=== PATIENT | female | born 1995 | race Caucasian/White ===

== ENCOUNTER 2020-09-06 05:25 | Emergency (ER) | payer OTHER, SELFPAY ==
--- NOTE | 2020-09-06 | ECG_ITS ---
Test Reason : ANXIETY
[2020-09-06 05:50] VITALS: BP 119/78; PULSE 109; PULSE 96; RESP 16; TEMP 37; O2SAT 99; BMI 40.2
--- NOTE | 2020-09-06 06:20 | ED_ITS ---
HPI - Anxiety General Chief Complaint: Anxiety Stated Complaint: anxiety Time Seen by Provider: 09/06/20 06:02 Source: patient Mode of arrival: EMS Limitations: no limitations History of Present Illness HPI narrative: 25-year-old female who presents emergency department for evaluation of chest pain, shortness of breath, heart palpitations. Patient states she has been experiencing these symptoms over the past 2 days. She states that the symptoms are worse at night. She states that prior to coming to the emergency department she developed a racing sensation in her heart and at skipping beat sensation. She developed pain in the center of her chest which she describes as a pressure-like pain which has been intermittent. She also states she had increased heartburn. She states that she felt very anxious and panicked. She states she does have a history of anxiety but there has been no increased stressors that she can identify. She denied fever, chills, cough, nausea, vomiting, myalgias, arthralgias, diarrhea. Related Data Allergies Allergy/AdvReac Type Severity Reaction Status Date / Time amphetamine [From ADDERALL] AdvReac Unknown HYPER/ANGRY Unverified 09/06/20 05:59 dextroamphetamine AdvReac Unknown HYPER/ANGRY Unverified 09/06/20 05:59 [From ADDERALL] Review of Systems Review of Systems: Yes all other systems are reviewed and are negative [facility] Past Medical History [facility] Narrative: Patient has a history of asthma, depression, anxiety, PTSD. She smokes half a pack of cigarettes per day x7 years, she drinks alcohol occasionally she states she last drank yesterday. She smokes marijuana multiple times a day. Physical Exam Vital Signs: Vital Signs: Last Vital Signs Temp 98.6 F 09/06/20 05:50 Pulse 96 09/06/20 05:50 Resp 16 09/06/20 05:50 BP 119/78 09/06/20 05:50 Pulse Ox 99 09/06/20 05:50 Body Mass Index 40.2 Const: General: cooperative and anxious Nutritional Appearance: overweight Orientation/consciousness: oriented to person and oriented to place Limitations: no limitations HENMT: Head: Yes normal to inspection, Yes normocephalic and Yes atraumatic Ears: external ears normal General nose exam: Normal external nose present Face and sinus: Yes normal facial exam Mouth: Normal oral and palatal mucosa present Throat: Yes posterior oropharynx normal Eyes: Periorbital: periorbital findings normal Eyelids: Yes eyelids normal Conjunctivae: conjunctivae normal Sclerae: sclerae normal Corneas: corneas normal Pupils: Equal, round and reactive pupils present Direct Ophthalmoscopy: normal light reflex Neck: Neck: Yes full ROM, Yes no lymphadenopathy, Yes no meningeal signs, Yes trachea midline and Yes supple Chest: Chest palpation & inspection: normal inspection of the chest and normal palpation of entire chest wall Resp: Effort & Inspection: normal respiratory effort and able to speak in complete sentences Auscultation: clear to auscultation bilaterally Cardio: Rate: tachycardic Rhythm: regular rhythm Heart sounds: S1 normal heart sound present, S2 normal heart sound present and no murmurs GI: Inspection: Yes normal to inspection Palpation (GI): Soft to palpation, nontender, no guarding, not rigid and No hepatosplenomegaly present : General: Yes no CVA tenderness Back/Spine/Pelvis: Back: no CVA tenderness Cervical Spine: normal cervical lordosis Thoracic/Lumbar Spine: thoracic and lumbar spine normal to inspection Skin: Lesions: no lesions Rashes: no rashes Wounds: no wounds Neuro: General: oriented to person, oriented to place and no meningeal signs Cranial nerves: Yes CN's II-XII intact bilaterally and Yes Equal, round and reactive pupils present Cognition (Neuro): normal cognition Motor exam (neuro): 5/5 motor strength present throughout Extrem: General: Yes normal to inspection and Yes full ROM Psych: Appearance: well kempt Mental Status: mental status grossly normal Speech and movement: Normal speech and movement present Affect: normal affect Attitude: cooperative Thought process: Normal thought process present Thought content: Normal thought content present Course Course Course Narrative: 24-year-old female who presents emergency department for evaluation of chest pain, palpitations and anxiety. Vital signs were stable wit h a pulse of 96 and an O2 saturation of 99% on room air. Physical examination revealed that she was anxious, and tachycardic otherwise exam was unremarkable. I ordered a CBC, CMP, urinalysis, urine test and TSH on this patient. EKG was also obtained. Patient's EKG revealed sinus rhythm with a rate of 98, prolonged QRS of 102 milliseconds otherwise was unremarkable. Patient was order ed to get Ativan 1 mg IV. MDM - Anxiety ECG Data Attestation: I personally reviewed and interpreted this ECG as follows: Interpretation: 0601: Normal sinus rhythm with a rate of 93, normal MN interval, prolonged QRS of 102 milliseconds, normal QTC, inverted T-wave in lead 3, no ST segment elevation, no ST segment depression, no old EKG for comparison
[2020-09-06] MEDS: LORazepam 2 MG/ML VIAL 1 MG IVPUSH (07:09)
[2020-09-06 07:10] LABS: MANUAL DIFF FLAG NO
[2020-09-06 07:11] LABS: Basophils Percent Auto 0.3 % (0-2); Eosinophils Percent Auto 0.3 % (0-4); Hematocrit 40.4 % (37-47); Hemoglobin 13.7 g/dl (12.0-16.0); Imm Gran Abs Auto 0.04 X10*3/uL (0.00-0.03); Imm Gran Pct Auto 0.5 % (0.0-0.4); Lymphocytes Absolute Auto 1.7 X10*3/uL (1.2-4.9); Lymphocytes Percent Auto 19.6 % (20-40); Mean Corpuscular HGB Conc 33.9 g/dl (31.0-35.0); Mean Corpuscular Hemoglobin 28.7 pg (27.0-33.0); Mean Corpuscular Volume 84.7 fL (80-98); Monocytes Absolute Auto 0.8 X10*3/uL (0.1-1.2); Monocytes Percent Auto 8.8 % (2-11); Neutrophils Absolute Auto 6.2 X10*3/uL (2.0-8.3); Neutrophils Percent Auto 70.5 % (45-73); Platelet Count 252 X10*3/uL (160-400); Red Blood Count 4.77 X10*6/uL (4.20-5.50); Red Cell Distribution Width 12.3 % (11.0-16.0); White Blood Count 8.7 X10*3/uL (4.8-10.8)
[2020-09-06 07:34] LABS: Alanine Aminotransferase 28 U/L (0-31); Albumin Level 4.3 g/dL (3.5-5.0); Alkaline Phosphatase 71 U/L (39-117); Anion Gap 12 (12-20); Aspartate Amino Transferase 26 U/L (5-31); Bilirubin Total 0.2 mg/dL (0.0-1.0); Blood Urea Nitrogen 19 mg/dL (9-16); Calcium 9.8 mg/dL (8.4-10.2); Carbon Dioxide 24 mmol/L (22-29); Chloride 106 mmol/L (96-108); Creatinine Clr Calc Pharmacy 117.8; Estimated Glomerular Filt Rate > 60; Glucose Random 107 mg/dL (60-115); Potassium 4.3 mmol/L (3.3-5.1); Sodium 138 mmol/L (135-145); Total Protein 7.5 g/dL (6.5-8.0)
[2020-09-06 07:38] LABS: Troponin-I High Sensitivity < 3.5 ng/L (<3.5-17.0)
[2020-09-06 07:52] LABS: TSH reflex Free T4 1.32 uIU/mL (0.32-4.0)
[2020-09-06 08:51] VITALS: BP 117/54; PULSE 76; RESP 18; O2SAT 97
== END 2020-09-06 10:04 | disposition home or self-care (01) ==
PROVIDERS: Emergency Provider Emergency Medicine Emergency Medical Services
DX: F41.9 Anxiety disorder, unspecified (principal); R00.2 Palpitations
CPT/HCPCS: 36415; 80053; 84443; 84484; 85025; 93005; 96374; 99284; J2060

== ENCOUNTER 2020-09-08 21:55 | Emergency (ER) | payer OTHER, SELFPAY ==
[2020-09-08 22:55] VITALS: BP 117/53; PULSE 100; RESP 24; TEMP 36.5; O2SAT 97; BMI 40.7
--- NOTE | 2020-09-08 23:02 | ECG_ITS ---
Test Reason : PALPITATIONS Blood Pressure : / mmHG Vent. Rate : 075 BPM Atrial Rate : 075 BPM P-R Int : 180 ms QRS Dur : 104 ms QT Int : 404 ms P-R-T Axes : 056 049 004 degrees QTc Int : 451 ms Normal sinus rhythm Normal ECG When compared with ECG of 06-SEP-2020 06:01, No significant changes seen Referred By: Generic ED Physician Electronically Signed By:GISELA BURNS
[2020-09-08 23:16] LABS: MANUAL DIFF FLAG NO
[2020-09-08 23:17] LABS: Basophils Percent Auto 0.3 % (0-2); Eosinophils Percent Auto 0.2 % (0-4); Hematocrit 40.4 % (37-47); Hemoglobin 14.2 g/dl (12.0-16.0); Imm Gran Abs Auto 0.02 X10*3/uL (0.00-0.03); Imm Gran Pct Auto 0.2 % (0.0-0.4); Lymphocytes Absolute Auto 2.6 X10*3/uL (1.2-4.9); Lymphocytes Percent Auto 28.7 % (20-40); Mean Corpuscular HGB Conc 35.1 g/dl (31.0-35.0); Mean Corpuscular Hemoglobin 29.1 pg (27.0-33.0); Mean Corpuscular Volume 82.8 fL (80-98); Mean Platelet Volume 9.1 fL (9.4-12.3); Monocytes Absolute Auto 0.7 X10*3/uL (0.1-1.2); Monocytes Percent Auto 8.1 % (2-11); Neutrophils Absolute Auto 5.7 X10*3/uL (2.0-8.3); Neutrophils Percent Auto 62.5 % (45-73); Platelet Count 253 X10*3/uL (160-400); Red Blood Count 4.88 X10*6/uL (4.20-5.50); Red Cell Distribution Width 12.3 % (11.0-16.0); White Blood Count 9.1 X10*3/uL (4.8-10.8)
[2020-09-08 23:40] LABS: Anion Gap 15 (12-20); Blood Urea Nitrogen 10 mg/dL (9-16); Calcium 9.7 mg/dL (8.4-10.2); Carbon Dioxide 22 mmol/L (22-29); Chloride 107 mmol/L (96-108); Creatinine Clr Calc Pharmacy 113.5; Estimated Glomerular Filt Rate > 60; Glucose Random 88 mg/dL (60-115); Potassium 3.6 mmol/L (3.3-5.1); Sodium 140 mmol/L (135-145)
[2020-09-08 23:47] LABS: Troponin-I High Sensitivity < 3.5 ng/L (<3.5-17.0)
--- NOTE | 2020-09-09 00:33 | ED.GENADULT ---
HPI - General Adult General Chief complaint: General Medical Stated complaint: ANXIETY - PALPITATIONS Time Seen by Provider: 09/09/20 00:18 Source: patient Mode of arrival: ambulatory Limitations: no limitations History of Present Illness HPI narrative: Patient comes emergency room complaining anxiety. Patient has been seen here yesterday and was also seen at [facility]. Prior to come to the emergency room, patient talk to [employer], they are working with her insurance to set up an appointment with a new PCP and a psychologist for therapy. Patient states that she feels palpitations, and becomes more anxious. At this time, patient overall feeling better. Yesterday, a TSH and troponin were checked , within normal limits. Patient denies suicidal or homicidal ideation. Patient denies chest pain, no shortness of breath at this time. Related Data Previous Rx's Medication Instructions Recorded diphenhydramine HCl [Benadryl] 25 mg PO TID PRN #20 cap 09/06/20 hydroxyzine HCl 50 mg PO BID PRN #14 tab 09/09/20 ondansetron HCl [Zofran] 4 mg PO Q6H PRN #14 tab 09/09/20 simethicone [Gas Relief 180 mg PO BID PRN #14 cap 09/09/20 (simethicone)] Allergies Allergy/AdvReac Type Severity Reaction Status Date / Time amphetamine [From ADDERALL] AdvReac Unknown HYPER/ANGRY Verified 09/08/20 22:55 dextroamphetamine AdvReac Unknown HYPER/ANGRY Verified 09/08/20 22:55 [From ADDERALL] Review of Systems Review of Systems: Constitutional : No Weight loss, No Fever, No Chills, No Night Sweats, No Fatigue, No Malaise ENT/Mouth : No Hearing loss, No Ear Pain, No Nasal Congestion, No Sinus Pain, No Hoarseness, No sore throat, No Rhinorrhea, No Swallowing Difficulty Eyes: No Eye Pain, No Swelling, No Redness, No Foreign Body, No Discharge, No Vision Changes Cardiovascular : No Chest Pain, No SOB, No Dyspnea on Exertion, No Orthopnea, No Edema, complaining of intermittent palpitations Respiratory : No Cough, No Sputum, No Wheezing, No Smoke Exposure, No Dyspnea Gastrointestinal : No Nausea, No Vomiting, No Diarrhea, No Constipation, No abdominal Pain, No Hematochezia, No Melena Genitourinary : no irregular bleeding, No Dysuria, No Urinary Frequency, No Hematuria, No Urinary Incontinence, No Urgency, No Flank Pain, No Urinary Flow Changes, No Hesitancy Musculoskeletal : No joint pain, No Myalgias, No Joint Swelling Skin : No Skin Lesions, No rash Neuro : No Weakness, No Numbness, No Paresthesias, No Loss of Consciousness, No Dizziness, No Headache Psych : Complaining of anxiety, depression, No SI/HI/AH/VH, No Social Issues, Heme/Lymph: No Bruising, No Bleeding,No Lymphadenopathy Endocrine : No Polyuria, No Polydipsia, No Temperature Intolerance [facility] Social History Social History Advance Directives: No Advance Directives Information Provided: No Physical Exam Vital Signs: Vital Signs: Last Vital Signs Temp 97.7 F 09/08/20 22:55 Pulse 100 09/08/20 22:55 Resp 24 H 09/08/20 22:55 BP 117/53 L 09/08/20 22:55 Pulse Ox 97 09/08/20 22:55 Body Mass Index 40.7 Appearance: Alert. Oriented X3. No acute distress. Anxious Eyes: Pupils equal, round and reactive to light. ENT: Pharynx normal. Neck: Normal inspection. Neck supple. No lymph nodes noted. No crepitus CVS: Normal heart rate and rhythm. Pulses normal. Normal S1 and S2 Respiratory: No respiratory distress. Breath sounds normal. No Wheezing. No rales Abdomen: Soft and nontender. No rigidity. No distention. good BS x4 Skin: Skin warm and dry. Normal skin color. Normal skin turgor. Extremities: No lower extremity edema. No lower extremity edema. No Lacerations. No Rash Neuro: Oriented X 3. No motor deficit. No sensory deficit. Moving all extermities. No slurred speech. Course Course Course Narrative: Patient is already being seen by [facility], troponin today was normal, he states yesterday within normal limits. Patient requesting hydroxyzine, states it has helped her in the past. Patient also requesting medication for abdominal bloating and nausea which become intense during panic attacks. Patient states that she also ran out of her albuterol medication, requesting a pump Medical Decision Making Lab Data Result diagrams: 09/08/20 23:10 09/08/20 23:10 Labs: Lab Results 09/08/20 09/08/20 09/08/20 Range/Units 23:10 23:10 23:10 WBC 9.1 (4.8-10.8) X10*3/uL RBC 4.88 (4.20-5.50) X10*6/uL Hgb 14.2 (12.0-16.0) g/dl Hct 40.4 (37-47) % MCV 82.8 (80-98) fL MCH 29.1 (27.0-33.0) pg MCHC 35.1 H (31.0-35.0) g/dl RDW 12.3 (11.0-16.0) % Plt Count 253 (160-400) X10*3/uL MPV 9.1 L (9.4-12.3) fL Immature Gran % (Auto) 0.2 (0.0-0.4) % Neut % (Auto) 62.5 (45-73) % Lymph % (Auto) 28.7 (20-40) % [place] % (Auto) 8.1 (2-11) % Eos % (Auto) 0.2 (0-4) % Baso % (Auto) 0.3 (0-2) % Lymph # (Auto) 2.6 (1.2-4.9) X10*3/uL [place] # (Auto) 0.7 (0.1-1.2) X10*3/uL Eos # (Auto) 0.0 (0.0-0.4) X10*3/uL Baso # (Auto) 0.0 (0.0-0.2) X10*3/uL Abs Immat Gran (auto) 0.02 (0.00-0.03) X10*3/uL Absolute Neuts (auto) 5.7 (2.0-8.3) X10*3/uL Absolute Nucleated RBC 0.000 (0.0-0.012) X10*3/uL Nucleated RBC % (auto) 0.0 (0.0-0.2) /100WBC Hold Blue Top SEE NOTE Sodium 140 (135-145) mmol/L Potassium 3.6 (3.3-5.1) mmol/L Chloride 107 (96-108) mmol/L Carbon Dioxide 22 (22-29) mmol/L Anion Gap 15 (12-20) BUN 10 (9-16) mg/dL Creatinine 0.89 (0.5-1.4) mg/dL Estim Creat Clear Calc 113.5 Estimated GFR > 60 Random Glucose 88 (60-115) mg/dL Calcium 9.7 (8.4-10.2) mg/dL Troponin I High Sens (<3.5-17.0) ng/L 09/08/20 Range/Units 23:10 WBC (4.8-10.8) X10*3/uL RBC (4.20-5.50) X10*6/uL Hgb (12.0-16.0) g/dl Hct (37-47) % MCV (80-98) fL MCH (27.0-33.0) pg MCHC (31.0-35.0) g/dl RDW (11.0-16.0) % Plt Count (160-400) X10*3/uL MPV (9.4-12.3) fL Immature Gran % (Auto) (0.0-0.4) % Neut % (Auto) (45-73) % Lymph % (Auto) (20-40) % [place] % (Auto) (2-11) % Eos % (Auto) (0-4) % Baso % (Auto) (0-2) % Lymph # (Auto) (1.2-4.9) X10*3/uL [place] # (Auto) (0.1-1.2) X10*3/uL Eos # (Auto) (0.0-0.4) X10*3/uL Baso # (Auto) (0.0-0.2) X10*3/uL Abs Immat Gran (auto) (0.00-0.03) X10*3/uL Absolute Neuts (auto) (2.0-8.3) X10*3/uL Absolute Nucleated RBC (0.0-0.012) X10*3/uL Nucleated RBC % (auto) (0.0-0.2) /100WBC Hold Blue Top Sodium (135-145) mmol/L Potassium (3.3-5.1) mmol/L Chloride (96-108) mmol/L Carbon Dioxide (22-29) mmol/L Anion Gap (12-20) BUN (9-16) mg/dL Creatinine (0.5-1.4) mg/dL Estim Creat Clear Calc Estimated GFR Random Glucose (60-115) mg/dL Calcium (8.4-10.2) mg/dL Troponin I High Sens < 3.5 (<3.5-17.0) ng/L ECG Data Attestation: I personally reviewed and interpreted this ECG as follows: (Heart rate 75, sinus rhythm, no ST segment depression or elevation, nonspecific T-wave inversion in III, QTC 451) Discharge Plan Discharge Clinical Impression: Anxiety Patient Disposition: Home, Self-Care Instructions: Anxiety (ED) Additional Instructions: Please follow-up with your primary care physician tomorrow. If you have any worsening or new symptoms, please return to the emergency room or call 911 Prescriptions: New hydroxyzine HCl 50 mg tablet 50 mg PO BID PRN (Reason: nausea and vomiting) Qty: 14 RF: 0 simethicone [Gas Relief (simethicone)] 180 mg capsule 180 mg PO BID PRN (Reason: abdominal distention) Qty: 14 RF: 0 ondansetron HCl [Zofran] 4 mg tablet 4 mg PO Q6H PRN (Reason: nausea and vomiting) Qty: 14 RF: 0 No Action diphenhydramine HCl [Benadryl] 25 mg capsule 25 mg PO TID PRN (Reason: sleep) Qty: 20 RF: 0
[2020-09-09] MEDS: Simethicone 80 MG TAB.CHEW 160 MG PO (01:01)
[2020-09-09] MEDS: hydrOXYzine HCL 50 MG TABLET PO (01:02)
== END 2020-09-09 01:07 | disposition home or self-care (01) ==
LOC: HO.ED 09-09 00:46
PROVIDERS: Emergency Provider Emergency Medicine
DX: R00.2 Palpitations (principal); F41.1 Generalized anxiety disorder; F43.0 Acute stress reaction; Z79.899 Other long term (current) drug therapy
CPT/HCPCS: 36415; 80048; 84484; 85025; 93005; 99283